=== PATIENT | male | born 1975 | race African-American/Black ===

== ENCOUNTER 2021-06-08 08:09 | Emergency (ER) | payer SELFPAY ==
[~2021-06-08] VITALS: Ht 175.3 cm; Wt 81.0 kg
[2021-06-08] MEDS ORDERED: LIDOCAINE HCL/EPINEPHRINE 1%-EPI 1:100,000 20 ML VIAL INFIL ONE (09:00)
[2021-06-08] MEDS ORDERED: BACITRACIN ZINC OINT UDPKT TOP ONE (09:30)
[2021-06-08] MEDS ORDERED: CEPH500T MT (09:31)
[2021-06-08 09:45] VITALS: BP 122/74
== END 2021-06-08 09:47 | disposition home or self-care (01) ==
LOC: ER 08:09
DX: L02.811 Cutaneous abscess of head [any part, except face] (principal)
CPT/HCPCS: 10060; 99284; A4217; J3490; Z7610